=== PATIENT | female | born 1960 | race African-American/Black ===

== ENCOUNTER 2018-01-30 20:39 | Emergency (ER) | payer OTHER ==
[~2018-01-30] VITALS: Ht 162.6 cm; Wt 86.2 kg
[~2018-01-30 20:39] MED LIST: AMARYL1 MG PO; GLUCOPHAGE500 MG PO; IRON325 PO; LEVOTHYROXINE0.05 MG PO; LOSARTAN POTASS50 MG PO; MULTIVITAMINS PO; NORCO 5-325 TA1 EACH PO; TRIAMTERENE-HC1 EAC1 PO
[2018-01-30] MEDS ORDERED: COMPAZINE10 MG PO (22:21)
[2018-01-30] MEDS ORDERED: BENADRYL25 MG PO (22:21)
== END 2018-01-30 22:43 | disposition home or self-care (01) ==
LOC: ER 20:39
DX: R51 Headache (principal); R11.2 Nausea with vomiting, unspecified; I10 Essential (primary) hypertension; E11.9 Type 2 diabetes mellitus without complications; E03.9 Hypothyroidism, unspecified